=== PATIENT | female | born 1990 | race American Indian/Alaskan Native ===

== ENCOUNTER 2016-07-29 20:58 | Emergency (ER) | payer MEDICAID ==
[~2016-07-29] VITALS: Ht 162.6 cm; Wt 83.2 kg
[2016-07-30] VITALS: BP 117/62
== END 2016-07-30 00:12 | disposition home or self-care (01) ==
LOC: ED 22:23
DX: N76.0 Acute vaginitis (principal)
CPT/HCPCS: 81003; 87210; 87491; 87591; 87808; 99284

== ENCOUNTER 2017-03-14 10:54 | Emergency (ER) | payer MEDICAID ==
[~2017-03-14] VITALS: Ht 162.6 cm; Wt 92.8 kg
[2017-03-14] MEDS ORDERED: KETOROLAC 30 MG/1 ML ONE (12:35)
[2017-03-14 12:36] LABS: HCG UR LOT HCG706132
[2017-03-14 12:43] LABS: HCG UR OBC PASS
[2017-03-14] MEDS ORDERED: KETOROLAC 30 MG/1 ML IM ONE (13:00)
[2017-03-14 15:43] VITALS: BP 123/75
[2017-03-14] MEDS ORDERED: CEFTRIAXONE 250 MG IM ONE (16:00)
[2017-03-14] MEDS ORDERED: AZITHROMYCIN 500 MG TABLET PO ONE (16:00)
[2017-03-14] MEDS ORDERED: CEFTRIAXONE 250 MG ONE (16:10)
[2017-03-14] MEDS ORDERED: AZITHROMYCIN 250 MG TABLET ONE (16:11)
== END 2017-03-14 16:23 | disposition home or self-care (01) ==
LOC: ED 12:37
DX: O23.41 Unspecified infection of urinary tract in pregnancy, first trimester (principal); Z3A.00 Weeks of gestation of pregnancy not specified
CPT/HCPCS: 36415; 81001; 81025; 84702; 87210; 87491; 87591; 87808; 96372; 99284; J0696; J1885

== ENCOUNTER 2018-09-06 17:25 | Emergency (ER) | payer MEDICAID ==
[~2018-09-06] VITALS: Ht 162.6 cm; Wt 105.4 kg
[2018-09-06 17:26] VITALS: BP 128/82
== END 2018-09-06 19:03 | disposition home or self-care (01) ==
LOC: ED 18:56
DX: S52.125A Nondisplaced fracture of head of left radius, initial encounter for closed fracture (principal); V00.131A Fall from skateboard, initial encounter; Y93.51 Activity, roller skating (inline) and skateboarding; Y92.89 Other specified places as the place of occurrence of the external cause; Y99.8 Other external cause status
CPT/HCPCS: 29125; 99283

== ENCOUNTER 2018-09-17 12:36 | Emergency (ER) | payer MEDICAID ==
[~2018-09-17] VITALS: Ht 162.6 cm; Wt 100.0 kg
[2018-09-17 12:53] VITALS: BP 131/80
== END 2018-09-17 14:18 | disposition home or self-care (01) ==
LOC: ED 14:12
DX: J18.1 Lobar pneumonia, unspecified organism (principal); K21.9 Gastro-esophageal reflux disease without esophagitis
CPT/HCPCS: 71046; 99283

== ENCOUNTER 2019-05-31 19:11 | Emergency (ER) | payer MEDICAID ==
[~2019-05-31] VITALS: Ht 162.6 cm; Wt 106.5 kg
[2019-05-31] MEDS ORDERED: SODIUM CHLORIDE FLUSH 10ML SYR IVF ONE (20:30)
[2019-05-31] MEDS ORDERED: SODIUM CHLORIDE 0.9% 1,000ML IVBOLUS ONE (20:30)
[2019-05-31] MEDS ORDERED: ONDANSETRON 2MG/ML, 2ML IVPush ONE (20:30)
[2019-05-31] MEDS ORDERED: ONDANSETRON 2MG/ML, 2ML ONE (20:40)
[2019-05-31 20:45] LABS: BASOPHILS # (AUTO) 0.05 x10^3/uL (0-0.1); BASOPHILS % (AUTO) 1 % (0-1); EOSINOPHILS # (AUTO) 0.11 x10^3/uL (0-0.4); EOSINOPHILS % (AUTO) 2 % (1-7); LYMPHOCYTES # (AUTO) 1.45 x10^3/uL (1-3.4); LYMPHOCYTES % (AUTO) 22 % (22-44); MD NO; MEAN CORPUSCULAR HEMOGLOBIN 24.7 pg (27.0-34.8); MEAN CORPUSCULAR HGB CONC 32.4 g/dL (32.4-35.8); MEAN CORPUSCULAR VOLUME 76.3 fL (80-100); MEAN PLATELET VOLUME 8.2 fL (7.4-10.4); MONOCYTES # (AUTO) 0.39 x10^3/uL (0.2-0.8); MONOCYTES % (AUTO) 6 % (2-9); NEUTROPHILS # (AUTO) 4.64 x10^3/uL (1.8-6.8); NEUTROPHILS % (AUTO) 70 % (42-75); PLATELET COUNT 356 x10^3/uL (130-400); RED BLOOD COUNT 5.12 x10^6/uL (3.82-5.3); RED CELL DISTRIBUTION WIDTH 17.5 % (9.6-15.2)
--- NOTE | 2019-05-31 20:50 | NUR ---
FIRST CONTACT WITH PT. PT SITTING UP IN [facility], MARY NOTED. RESPIRATIONS EVEN/UNLABORED. PT WITH INTERMITTENT, STRONG COUGH. PT REPORTS INTERMITTENT STABBING PAIN "ON MY LEFT SHOULDER BLADE" THAT RADIATES TO L ARM AND NECK X ONE WEEK. "ITS WORSE IN THE MORNING AFTER I WAKE UP"; NO RELIEVING FACTORS. PT ALSO CO NON-PRODUCTIVE COUGH X SEVERAL DAYS. DENIES CP/SOB/FEVER/N/V/ABD PAIN. PT AMBULATORY TO RESTROOM TO PROVIDE UA. UA COLLECTED AND SENT TO LAB. BP/SPO2 MONITORING IN PLACE. VS WNL.
[2019-05-31 20:54] LABS: ALANINE AMINOTRANSFERASE 53 U/L (12-78); ALBUMIN 3.6 g/dL (3.4-5.0); ANION GAP 6 mmol/L (5-15); CALCIUM 8.8 mg/dL (8.5-10.1); CHLORIDE 108 mmol/L (98-107); CREATININE 0.81 mg/dL (0.55-1.02)
[2019-05-31 20:59] LABS: ALKALINE PHOSPHATASE 127 U/L (45-117); BILIRUBIN,TOTAL 0.5 mg/dL (0.2-1.0); TOTAL PROTEIN 8.3 g/dL (6.4-8.2)
--- NOTE | 2019-05-31 21:09 | NUR ---
PT REFUSING ZOFRAN, STATES 'I'M NOT NAUSEATED'. UA COLLECTED AND SENT TO LAB
[2019-05-31 21:17] VITALS: BP 126/65
[2019-05-31 21:22] LABS: CULTURE INDICATED? YES; MICROSCOPIC INDICATED
--- NOTE | 2019-05-31 21:52 | NUR ---
DC EDUCATION PROVIDED BY HIEU CASILLAS. PT AMBULATED STEADILY TO DC WITH SONJA.
== END 2019-05-31 21:55 | disposition home or self-care (01) ==
LOC: ED 21:42
DX: R07.89 Other chest pain (principal); J00 Acute nasopharyngitis [common cold]; K21.9 Gastro-esophageal reflux disease without esophagitis
CPT/HCPCS: 36415; 71046; 80053; 81001; 83690; 84703; 85025; 87086; 93005; 99285; J7030

== ENCOUNTER 2020-03-10 14:37 | Emergency (ER) | payer MEDICAID ==
[~2020-03-10] VITALS: Ht 162.6 cm; Wt 105.8 kg
[2020-03-10 15:24] LABS: BASOPHILS % (AUTO) 1 % (0-1); EOSINOPHILS % (AUTO) 2 % (1-7); LYMPHOCYTES % (AUTO) 24 % (22-44); MEAN CORPUSCULAR HEMOGLOBIN 26.4 pg (27.0-34.8); MEAN CORPUSCULAR HGB CONC 32.8 g/dL (32.4-35.8); MEAN PLATELET VOLUME 8.3 fL (7.4-10.4); MONOCYTES % (AUTO) 6 % (2-9); NEUTROPHILS % (AUTO) 67 % (42-75); PLATELET COUNT 278 x10^3/uL (130-400); RED BLOOD COUNT 5.23 x10^6/uL (3.82-5.3); RED CELL DISTRIBUTION WIDTH 18.2 % (9.6-15.2)
[2020-03-10 15:36] LABS: ALANINE AMINOTRANSFERASE 60 U/L (12-78); ALBUMIN 3.6 g/dL (3.4-5.0); ANION GAP 5 mmol/L (5-15); CALCIUM 8.9 mg/dL (8.5-10.1); CHLORIDE 107 mmol/L (98-107); CREATININE 0.93 mg/dL (0.55-1.02)
[2020-03-10 15:41] LABS: ALKALINE PHOSPHATASE 113 U/L (45-117); BILIRUBIN,TOTAL 0.6 mg/dL (0.2-1.0); TOTAL PROTEIN 8.1 g/dL (6.4-8.2)
[2020-03-10 15:44] LABS: MD NO
[2020-03-10] MEDS ORDERED: MECLIZINE CHEWABLE 25 MG TAB ONE (17:26)
[2020-03-10] MEDS ORDERED: MECLIZINE CHEWABLE 25 MG TAB PO ONE (17:30)
--- NOTE | 2020-03-10 17:43 | NUR ---
PT REPORTS INTERMITTENT DIZZINESS X YESTERDAY, WORSENS WITH CHANGE IN POSITION. +VILLANUEVA "AT THE TOP". DENIES N/V/CHANGE IN VISION/EAR PAIN/PALPITATIONS. BP STABLE. PT ABLE TO STAND AND WALK TO BATHROOM WO WORSENING SYMPTOMS. REPORTS INCREASE IN DIZZINESS UPON LAYING BACK DOWN IN GURNEY. BP/SPO2 MONITOR IN PLACE. UA COLLECTED AND SENT TO LAB.
[2020-03-10 18:14] LABS: MICROSCOPIC INDICATED
[2020-03-10 18:45] VITALS: BP 115/60
--- NOTE | 2020-03-10 18:45 | NUR ---
POC IS DC. PT OFF MONITORING AT THIS TIME AND ASKED TO DRESS. AWAITING DC INSTRUCTIONS.
--- NOTE | 2020-03-10 18:46 | NUR ---
DC EDUCATION PROVIDED BY HIEU LEONARD. PT AMBULATED STEADILY TO DC WITH HIEU LEONARD
== END 2020-03-10 18:49 | disposition home or self-care (01) ==
LOC: ED 18:30
DX: R42 Dizziness and giddiness (principal); K21.9 Gastro-esophageal reflux disease without esophagitis; R94.31 Abnormal electrocardiogram [ECG] [EKG]; Z90.89 Acquired absence of other organs
CPT/HCPCS: 36415; 80053; 81001; 84703; 85025; 87086; 93005; 99284

== ENCOUNTER 2020-10-13 17:15 | Emergency (ER) | payer MEDICAID, OTHER ==
[~2020-10-13] VITALS: Ht 162.6 cm; Wt 104.0 kg
[2020-10-13] MEDS ORDERED: LIDOCAINE-MPF 1%, 5ML ONE (19:46)
[2020-10-13] MEDS ORDERED: CEPHALEXIN 500 MG CAPSULE PO ONE (20:00)
[2020-10-13] MEDS ORDERED: LIDOCAINE 1%, 10ML INFIL ONE (20:00)
[2020-10-13] MEDS ORDERED: DIPH,PERTUSS(ACELL),TET VAC/PF 0.5 ML IM-VACC ONE ×2 (20:00→20:14)
[2020-10-13] MEDS ORDERED: CEPHALEXIN 500 MG CAPSULE ONE (20:13)
--- NOTE | 2020-10-13 20:18 | NUR ---
pt to er for possible lg splinter to r do. pt states she was at work, and a board was broken and she turned into it. palpable mass under skin. bleeding controlled. meds per mar. denies any needs. will ctm.
[2020-10-13] MEDS ORDERED: BACITRACIN ZINC OINT 500U/GM, 0.9 GM ONE (21:17)
[2020-10-13 21:57] VITALS: BP 136/85
== END 2020-10-13 21:59 | disposition home or self-care (01) ==
LOC: ED 21:00
DX: S80.851A Superficial foreign body, right lower leg, initial encounter (principal); S81.831A Puncture wound without foreign body, right lower leg, initial encounter; K21.9 Gastro-esophageal reflux disease without esophagitis; Z90.89 Acquired absence of other organs; X58.XXXA Exposure to other specified factors, initial encounter; Y93.89 Activity, other specified; Y92.89 Other specified places as the place of occurrence of the external cause; Y99.8 Other external cause status
CPT/HCPCS: 10120; 90471; 90715; 99285; J3490

== ENCOUNTER 2020-12-07 19:28 | Emergency (ER) | payer MEDICAID, OTHER ==
[~2020-12-07] VITALS: Ht 162.6 cm; Wt 105.5 kg
[2020-12-07 19:35] VITALS: BP 172/102
--- NOTE | 2020-12-07 19:41 | NUR ---
UA CUP GIVEN TO PATIENT. PATIENT VERBALIZED UNDERSTANDING OF CLEAN CATCH URINE COLLECTION PROCESS
[2020-12-07 20:17] LABS: MICROSCOPIC INDICATED
[2020-12-07 20:57] LABS: BASOPHILS % (AUTO) 1 % (0-1); EOSINOPHILS % (AUTO) 1 % (1-7); LYMPHOCYTES % (AUTO) 22 % (22-44); MEAN CORPUSCULAR HEMOGLOBIN 29.1 pg (27.0-34.8); MEAN CORPUSCULAR HGB CONC 33.6 g/dL (32.4-35.8); MEAN PLATELET VOLUME 8.1 fL (7.4-10.4); MONOCYTES % (AUTO) 6 % (2-9); NEUTROPHILS % (AUTO) 70 % (42-75); PLATELET COUNT 288 x10^3/uL (130-400); RED BLOOD COUNT 4.85 x10^6/uL (3.82-5.3); RED CELL DISTRIBUTION WIDTH 14.9 % (9.6-15.2)
[2020-12-07 21:02] LABS: ALANINE AMINOTRANSFERASE 46 U/L (12-78); ALBUMIN 3.6 g/dL (3.4-5.0); ANION GAP 8 mmol/L (5-15); CHLORIDE 105 mmol/L (98-107); CREATININE 0.73 mg/dL (0.55-1.02)
[2020-12-07 21:06] LABS: ALKALINE PHOSPHATASE 117 U/L (45-117); BILIRUBIN,TOTAL 0.6 mg/dL (0.2-1.0)
--- NOTE | 2020-12-07 21:33 | NUR ---
pt to room from lobby
--- NOTE | 2020-12-07 21:43 | NUR ---
pardeep Andrea at bedside
[2020-12-07] MEDS ORDERED: CEFTRIAXONE 1,000 MG ONE (21:48)
[2020-12-07 21:54] LABS: CLUE CELLS NONE SEEN (NONE SEEN); WET PREP WBCS MANY (FEW)
[2020-12-07] MEDS ORDERED: CEFTRIAXONE 1,000 MG IM ONE (22:00)
--- NOTE | 2020-12-07 22:01 | NUR ---
pt medicated per order, tolerated well.
== END 2020-12-07 22:45 | disposition home or self-care (01) ==
LOC: ED 22:39
DX: A54.03 Gonococcal cervicitis, unspecified (principal); A56.09 Other chlamydial infection of lower genitourinary tract
CPT/HCPCS: 36415; 76830; 80053; 81001; 84703; 85025; 87086; 87147; 87210; 87491; 87591; 87808; 96372; 99284; J0696